=== PATIENT | male | born 1975 | race Caucasian/White ===

== ENCOUNTER 2017-07-29 18:43 | Emergency (ER) | payer BC ==
--- NOTE | 2017-07-29 19:40 | ERNOTE ---
Chest Pain/Cardiac HPI Date of Service: 07/29/17 Chief Complaint: Chest Pain Time Seen by Provider: 07/29/17 19:21 Source: patient, family, RN notes reviewed Exam Limitations: no limitations Immunizations: IMMUNIZATION HX Immunizations Up to Date Yes: unknown History of Influenza Vaccine No Hx Pneumococcal Vaccination No Allergies/Adverse Reactions: Allergies Flu Vaccine Allergy (Severe, Uncoded 07/29/17 19:01) Other Home Medications: HOME MEDICATIONS Ibuprofen [Motrin] 800 mg PO TID PRN 12/21/15 [Last Taken Unknown] Pain Score #1 Pain Score: 0 Narrative: Tray is a 41 year old male who presents to the ED for shortness of breath and palpitations that began earlier this afternoon. He was feeling fine prior to this. He reports walking a short distance and then becoming dyspneic and feeling like his heart was pounding like he had just been exercising heavily. The symptoms resolved with rest, but have continued to occur with minimal activity. He is currently asymptomatic at rest. He denies having any chest pain. He has no prior cardiac history. Date (Duration): 07/29/17 Time (Timing): 14:00 Prior Chest Pain/Cardiac Workup: Reports: no prior cardiac workup. Denies: prior chest pain Prior Treatment: Denies: recently seen Review of Systems - Review of Systems Constitutional: Absent: recent illness, fever, chills, fatigue, malaise EYE: Absent: eye pain, vision changes ENT: Absent: nose congestion, sore throat Respiratory: Present: shortness of breath - exertional. Absent: cough Cardiology: Present: palpitations. Absent: chest pain, syncope Gastrointestinal/Abdominal: Absent: nausea, vomiting, diarrhea, abdominal pain Genitourinary: Present: no symptoms reported Musculoskeletal: Absent: muscle pain, joint pain Skin: Absent: rash, lesions Neurological: Absent: headache, dizziness/light-headedness Endocrine: Absent: intolerance to heat, unexplained weight loss Hematologic/Lymphatic: Absent: easy bruising, easy bleeding Psych: Absent: anxiety, depressed - Patient's Past Medical History Patient History - Medical: No pertinent hx Patient History - Cardiac/Respiratory: Pneumonia Patient History - Cancer: No Hx of Cancer Patient History - Surgical Procedures: Appendectomy Patient History - Other: None - Family History Mother Family History - Medical: No pertinent hx Family History - Cardiac/Respiratory: CHF Family History - Cancer: No pertinent family hx Father Family History - Medical: No pertinent hx Family History - Cardiac/Respiratory: No pertinent hx Family History - Cancer: No pertinent family hx - Social History Living Situations: spouse Abuse History: No History of abuse Psych History: No pertinent hx Smoking Status: Former smoker Have you smoked in the past 12 months: No Do you dip or chew tobacco: No Patient requests Smoking Cessation Consult: No Initiate information on Smoking Cessation: No Alcohol Use: none Drug Use: none - Immunizations Immunizations Up to Date: Yes - unknown Hx Pneumococcal Vaccination: No History of Influenza Vaccine: No Physical Exam - Physical Exam General Appearance: Present: wd/wn, alert, no apparent distress Head Exam: Present: normal inspection Eye Exam: Normal inspection: bilateral Neck: Present: normal inspection, nontender, supple, full range of motion Respiratory: Present: no respiratory distress, normal breath sounds, no accessory muscle use, chest nontender, lungs clear Cardiovascular/Chest: Present: regular rate, rhythm, no murmur, normal peripheral pulses Gastrointestinal/Abdominal: Present: nontender, nondistended, soft Extremity Exam: Present: normal inspection, non-tender, normal range of motion, no edema Neurological Exam: Present: alert, oriented, normal mood/affect, no motor/ sensory deficits Skin Exam: Present: normal color, warm/dry ED Progress - Results and Orders Patient's Lab Results:: I have reviewed the patient's lab results. - Vital Signs Patient's Vital Signs:: I have reviewed the patient's vital signs. Vital Signs: Vital Signs 07/29/17 18:48 Temperature 36.5 C Pulse Rate 86 Respiratory 16 Rate Blood Pressure 164/88 O2 Sat by Pulse 93 Oximetry - EKG EKG: NSR EKG read: Reviewed by me - X-Ray X-Ray #1 X-Ray: chest Interpretation: Interp. by me X-ray Comments: No acute cardiopulmonary process noted - Progress/Reassessment Chief Complaint: Chest Pain Progress:: Pain free at discharge Progress Note-Subjective: 07/29/17 20:32 Patient ambulated to ay and back, appears dyspneic and reports having palpitations. Monitor shows SR at 85. SpO2 94% on room air. Denies pain. Additional labs ordered. Patient now remembers having a DVT in a lower extremity and having to take Coumadin approximately 15 years ago. He does not recall having any follow up done to evaluate any underlying coagulopathies after being taking off the medication. Departure Clinical Impression: Palpitations - Departure Disposition: Home Follow Up Needed Condition: Stable Instructions: Palpitations, [id number], Form - Excuse from Work, School, or Physical Activity Additional Instructions: Rest, drink plenty of fluids Return to ER if symptoms worsen Contact the clinic for follow up if you are still having symptoms tomorrow Referrals: Candelario Mosley MD [Primary Care Provider] -
[2017-07-29 19:45] LABS: Hematocrit 39.9 % (42.0-52.0); Hemoglobin 14.5 gm/dL (13.5-18.0); Mean Cell Volume 83.6 fl (78-100); Mean Corpuscular Hemoglobin 30.4 pg (27-31); Mean Corpuscular Hgb Conc 36.3 g/dl (32-36); Mean Platelet Volume 9.5 fl (6.0-9.5); Neutrophil # 4.5 K/mm3 (1.3-6.0); Neutrophil % 51.6 % (42-75.0); Platelet Count 241 K/mm3 (150-450); Red Blood Count 4.77 M/mm3 (4.7-6.0); White Blood Count 8.8 K/mm3 (4.0-10.5)
[2017-07-29 20:02] LABS: BUN/Creatinine Ratio 15.1 (9.0-21.6); Blood Urea Nitrogen 18 mg/dL (6-23); Glucose * 122 mg/dL (70-110); Sodium 136 mmol/L (132-142)
[2017-07-29 20:03] LABS: ALT 41 U/L (19-67); AST 18 U/L (0-48); Albumin * 3.9 gm/dl (3.4-5.0); Alkaline Phosphatase * 64 U/L (50-170); Anion Gap 6.5 mmol/L (6.8-13.8); Bilirubin, Total 0.2 mg/dL (0.0-1.1); Ca. Corrected For Albumin 8.4 mg/dL (8.4-10.2); Calcium * 8.6 mg/dL (7.9-10.9); Chloride 104 mmol/L (97-106); Potassium 3.5 mmol/L (3.4-4.6); Total Protein 7.7 gm/dL (6.2-8.2); Troponin I Less than 0.017 ng/ml (0.00-0.10)
[2017-07-29 20:44] LABS: BNP * 25 pg/mL (5-140); TSH * 1.954 uIU/mL (0.358-3.74)
[2017-07-29 22:31] VITALS: BP 155/96
== END 2017-07-29 21:19 | disposition home or self-care (01) ==
LOC: ER 18:43
DX: Z87.891 Personal history of nicotine dependence; R00.2 Palpitations

== ENCOUNTER 2017-08-02 19:26 | Observation (INO) | payer BC ==
[2017-08-02] MEDS ORDERED: ASPIRIN 81 MG TAB.CHEW ONE (19:36)
[2017-08-02] MEDS ORDERED: ASPIRIN 81 MG TAB.CHEW PO ONE (19:45)
[2017-08-02] MEDS: NITROGLYCERIN 0.4 MG/TAB BTL SL PRN ×2 (19:47→19:55)
[2017-08-02 20:02] LABS: Hematocrit 39.3 % (42.0-52.0); Hemoglobin 13.9 gm/dL (13.5-18.0); Mean Corpuscular Hemoglobin 29.7 pg (27-31); Mean Corpuscular Hgb Conc 35.4 g/dl (32-36); Mean Platelet Volume 9.6 fl (6.0-9.5); Neutrophil # 3.6 K/mm3 (1.3-6.0); Neutrophil % 45.8 % (42-75.0); Platelet Count 243 K/mm3 (150-450); Red Blood Count 4.68 M/mm3 (4.7-6.0); Red Cell Distribution Width 13.5 % (11.5-14.0)
[2017-08-02 20:21] LABS: ALT 44 U/L (19-67); AST 15 U/L (0-48); Albumin * 3.8 gm/dl (3.4-5.0); Alkaline Phosphatase * 56 U/L (50-170); Anion Gap 14.4 mmol/L (6.8-13.8); BUN/Creatinine Ratio 11.1 (9.0-21.6); Bilirubin, Total 0.2 mg/dL (0.0-1.1); Blood Urea Nitrogen 11 mg/dL (6-23); Ca. Corrected For Albumin 8.5 mg/dL (8.4-10.2); Calcium * 8.7 mg/dL (7.9-10.9); Carbon Dioxide 24.4 mmol/L (24-32.6); Chloride 105 mmol/L (97-106); Glucose * 101 mg/dL (70-110); Potassium 3.8 mmol/L (3.4-4.6); Sodium 140 mmol/L (132-142); Total Protein 7.5 gm/dL (6.2-8.2)
[2017-08-02 20:22] LABS: Troponin I Less than 0.017 ng/ml (0.00-0.10)
--- NOTE | 2017-08-02 20:57 | ERNOTE ---
Chest Pain/Cardiac HPI Date of Service: 08/02/17 Chief Complaint: Chest Pain Time Seen by Provider: 08/02/17 19:34 Source: patient, RN notes reviewed, past records Exam Limitations: no limitations Immunizations: IMMUNIZATION HX Immunizations Up to Date Yes: unknown History of Influenza Vaccine No Hx Pneumococcal Vaccination No Allergies/Adverse Reactions: Allergies Flu Vaccine Allergy (Severe, Uncoded 07/29/17 19:01) Other Home Medications: HOME MEDICATIONS Ibuprofen [Motrin] 800 mg PO TID PRN 12/21/15 [Last Taken Unknown] Narrative: Tray is a 41 year old male who presents to the ED by private vehicle for chest pain that began a short while ago while he was eating dinner. He was seen here by me 4 days ago for palpitations and shortness of breath. His work-up at that time was unremarkable. He was seen for follow up in the clinic and had an echo done today. He is scheduled for a stress test tomorrow morning. He has been off work and resting at home all week. He has continued to have palpitations and shortness of breath intermittently at home. Date (Duration): 08/02/17 Timing: constant Severity/Quality: moderate, aching Location: left chest Chest Pain Radiation: no radiation Activities at Onset: other - Eating Nitro Today/Relief: no nitro taken today Aspirin Treatment Today: 81 mg x 1 Prior Chest Pain/Cardiac Workup: Reports: echocardiogram - Today, no results available. Denies: no prior cardiac workup Prior Treatment: Reports: recently seen, treated by physician. Denies: recently hospitalized Review of Systems - Review of Systems Constitutional: Present: decreased activity level. Absent: fever, chills EYE: Present: no symptoms reported ENT: Absent: nose congestion, sore throat Respiratory: Present: shortness of breath. Absent: cough, orthopnea Cardiology: Present: chest pain, palpitations. Absent: syncope, edema Gastrointestinal/Abdominal: Absent: nausea, vomiting, abdominal pain Genitourinary: Present: no symptoms reported Musculoskeletal: Absent: muscle pain, joint pain Skin: Absent: rash, lesions, change in color Neurological: Absent: headache, dizziness/light-headedness, weakness, numbness, tingling Endocrine: Present: no symptoms reported Hematologic/Lymphatic: Absent: easy bruising, easy bleeding Psych: Absent: anxiety, depressed - Patient's Past Medical History Patient History - Medical: No pertinent hx Patient History - Cardiac/Respiratory: Asthma, Deep Vein Thrombosis, Pneumonia Patient History - Cancer: No Hx of Cancer Patient History - Surgical Procedures: Appendectomy Patient History - Other: None - Family History Mother Family History - Medical: No pertinent hx Family History - Cardiac/Respiratory: CHF Family History - Cancer: No pertinent family hx Father Family History - Medical: No pertinent hx Family History - Cardiac/Respiratory: No pertinent hx Family History - Cancer: No pertinent family hx - Social History Living Situations: home Abuse History: No History of abuse Psych History: No pertinent hx Smoking Status: Former smoker Have you smoked in the past 12 months: No Alcohol Use: none Drug Use: none - Immunizations Immunizations Up to Date: Yes - unknown Hx Pneumococcal Vaccination: No History of Influenza Vaccine: No Physical Exam - Physical Exam General Appearance: Present: wd/wn, alert, mild distress, anxious Head Exam: Present: normal inspection, no evidence of injury Eye Exam: Normal inspection: bilateral Neck: Present: normal inspection, nontender, supple Respiratory: Present: no respiratory distress, normal breath sounds, no accessory muscle use, chest nontender, lungs clear Cardiovascular/Chest: Present: regular rate, rhythm, no murmur, normal peripheral pulses Gastrointestinal/Abdominal: Present: nontender, nondistended, soft Extremity Exam: Present: normal inspection, no edema Neurological Exam: Present: alert, oriented, normal mood/affect, no motor/ sensory deficits Skin Exam: Present: normal color, warm/dry ED Progress - Results and Orders Patient's Lab Results:: I have reviewed the patient's lab results. - Vital Signs Patient's Vital Signs:: I have reviewed the patient's vital signs. Vital Signs: Vital Signs 08/02/17 08/02/17 19:33 19:47 Temperature 36.2 C L Pulse Rate 81 86 Respiratory 18 16 Rate Blood Pressure 152/98 154/102 O2 Sat by Pulse 96 94 Oximetry - EKG EKG: NSR, unchanged from - 07/29/17 EKG read: Reviewed by me - X-Ray X-Ray #1 X-Ray: chest Interpretation: Reviewed by me X-ray Comments: No acute cardiopulmonary findings - Progress/Reassessment Chief Complaint: Chest Pain Progress:: Improved Plan - Plan Plan: EKG without changes since 4 days ago, normal troponin, normal chest xray. Chest pain relieved with Ntg SL. Patient has nuclear med stress test at [address] Barlow contacted. Patient will be observation status on tele overnight d/t his ongoing symptoms. Departure Clinical Impression: Palpitations Chest pain Qualifiers: Chest pain type: unspecified Qualified Code(s): R07.9 - Chest pain, unspecified - Departure Disposition: [facility] Condition: Fair
[2017-08-02] MEDS ORDERED: NITROGLYCERIN 0.4 MG/TAB BTL SL PRN (20:58)
[2017-08-02] MEDS ORDERED: SIMVASTATIN 40 MG TABLET PO SCH (21:00)
[2017-08-03] MEDS ORDERED: Regadenoson 0.08 MG/ML SYRG IV ONE (08:15)
[2017-08-03] MEDS ORDERED: Regadenoson 0.1 MG UNIT IV ONE (08:15)
[2017-08-03 10:33] VITALS: BP 144/92
--- NOTE | 2017-08-03 11:30 | HP ---
Chief Complaint - Chief Complaint Date of Service: 08/03/17 Time of Service: 12:45 Chief Complaint: chest pain, palpitations History of Present Illness: The patient states that his chest pain and palpitations started on Sunday, 07/29. Prior to this day, he denies ever experiencing chest pain or palpitations. He states the chest pain and palpitations only occur when he is up moving around and being active. Does not occur at rest. The episodes happen multiple times per day and usually last a few seconds to minutes and very rarely lasts over 5 minutes. He has not found anything that relieves the symptoms other than just sitting and waiting them out. - Patient's Past Medical History Patient History - Medical: No pertinent hx Patient History - Cardiac/Respiratory: Asthma, Deep Vein Thrombosis, Pneumonia Patient History - Cancer: No Hx of Cancer Patient History - Surgical Procedures: Appendectomy Patient History - Other: None - Family History Mother Family History - Medical: No pertinent hx Family History - Cardiac/Respiratory: CHF Family History - Cancer: No pertinent family hx Father Family History - Medical: No pertinent hx Family History - Cardiac/Respiratory: No pertinent hx Family History - Cancer: No pertinent family hx - Social History Living Situations: home Abuse History: No History of abuse Psych History: No pertinent hx Smoking Status: Former smoker Have you smoked in the past 12 months: No Do you dip or chew tobacco: No Alcohol Use: none Drug Use: none - Immunizations Immunizations Up to Date: Yes - unknown Hx Pneumococcal Vaccination: No History of Influenza Vaccine: No Review Of Systems (GEN) - Review of Systems Generalized/Overall Review: Present: Fatigue. Absent: Chills, Fever EENTM: Present: No Symptoms Reported Respiratory: Absent: Cough Cardiac: Present: Chest Pain, Palpitations Abdominal: Present: No Symptoms Reported Genitourinary: Present: No Symptoms Reported Musculoskeletal: Present: No Symptoms Reported Neurological: Present: No Symptoms Reported Skin: Present: No Symptoms Reported Endocrine: Present: No Symptoms Reported Misc: All systems neg except as marked Immunizations: IMMUNIZATION HX Immunizations Up to Date Yes: unknown History of Influenza Vaccine No Hx Pneumococcal Vaccination No Allergies/Adverse Reactions: Allergies Allergy/AdvReac Type Severity Reaction Status Date / Time Flu Vaccine Allergy Severe Other Uncoded 07/29/17 19:01 Exam - Exam Vital Signs: Vital Signs - Last Taken Temp 36.4 C L 08/03/17 09:26 Pulse 79 08/03/17 10:31 Resp 18 08/03/17 10:31 BP 144/92 08/03/17 10:32 Pulse Ox 98 08/03/17 10:31 Constitutional: Present: Alert, Oriented x3, Cooperative, Well developed, No distress, Obese ENT Exam: Present: hearing grossly normal, moist mucous membranes Eye Exam: bilateral eye: normal inspection Respiratory: Present: lungs clear, normal breath sounds, no respiratory distress , no accessory muscle use Cardiovascular/Chest: Present: regular rate, rhythm, no edema, no murmur Abdomen: Present: soft, nontender, nondistended, obese Extremity: Present: normal inspection, no pedal edema Skin Exam: Present: normal color, warm/dry Neurologic: Present: alert, normal mood/affect, oriented x 3 Appearance: Present: appropriate appearance, appropriate insight, neat, no memory impairment Eye contact: Present: cooperative, good eye contact, normal speech Thoughts: Present: normal thought pattern, no apparent hallucination Diagnostic Studies: Laboratory Results WBC 8.0 K/mm3 (4.0-10.5) 08/02/17 20:01 RBC 4.68 M/mm3 (4.7-6.0) L 08/02/17 20:01 Hgb 13.9 gm/dL (13.5-18.0) 08/02/17 20:01 Hct 39.3 % (42.0-52.0) L 08/02/17 20:01 MCV 84.0 fl (78-100) 08/02/17 20:01 MCH 29.7 pg (27-31) 08/02/17 20:01 MCHC 35.4 g/dl (32-36) 08/02/17 20:01 RDW 13.5 % (11.5-14.0) 08/02/17 20:01 Plt Count 243 K/mm3 (150-450) 08/02/17 20:01 MPV 9.6 fl (6.0-9.5) H 08/02/17 20:01 Immature Gran % (Auto) 0.60 % (0.001-0.429) H 08/02/17 20:01 Immature Gran # (Auto) 0.05 K/mm3 (0.000-0.0310) H 08/02/17 20:01 Neutrophils % 45.8 % (42-75.0) 08/02/17 20:01 Lymphocytes % 42.1 % (20-51) 08/02/17 20:01 Monocytes % 6.0 % (0.0-9) 08/02/17 20:01 Eosinophils % 4.0 % (0.0-3.0) H 08/02/17 20:01 Basophils % 1.5 % (0.0-1.0) H 08/02/17 20:01 Nucleated RBC % 0.0 k/mm3 (0-1) 08/02/17 20:01 Neutrophils # 3.6 K/mm3 (1.3-6.0) 08/02/17 20:01 Lymphocytes # 3.4 k/mm3 (1.5-3.5) 08/02/17 20:01 Monocytes # 0.5 k/mm3 (0.0-1.0) 08/02/17 20:01 Eosinophils # 0.3 k/mm3 (0.0-0.7) 08/02/17 20:01 Absolute Basophils 0.1 k/mm3 (0.0-0.1) 08/02/17 20:01 Sodium 140 mmol/L (132-142) 08/02/17 20:01 Plasma Sodium 140 mmol/L (130-142) 08/02/17 20:01 Potassium 3.8 mmol/L (3.4-4.6) 08/02/17 20:01 Chloride 105 mmol/L (97-106) 08/02/17 20:01 Carbon Dioxide 24.4 mmol/L (24-32.6) 08/02/17 20:01 Anion Gap 14.4 mmol/L (6.8-13.8) H 08/02/17 20:01 BUN 11 mg/dL (6-23) 08/02/17 20:01 Creatinine 0.99 mg/dL (0.4-1.4) 08/02/17 20:01 Est GFR (Non-Af Amer) 88 mL/min (60-130) D 08/02/17 20:01 BUN/Creatinine Ratio 11.1 (9.0-21.6) 08/02/17 20:01 Random Glucose 101 mg/dL (70-110) 08/02/17 20:01 Calcium 8.7 mg/dL (7.9-10.9) 08/02/17 20:01 Calcium Adj for Albumin 8.5 mg/dL (8.4-10.2) 08/02/17 20:01 Total Bilirubin 0.2 mg/dL (0.0-1.1) 08/02/17 20:01 AST 15 U/L (0-48) 08/02/17 20:01 ALT 44 U/L (19-67) 08/02/17 20:01 Alkaline Phosphatase 56 U/L (50-170) 08/02/17 20:01 Troponin I Less than 0.017 ng/ml (0.00-0.10) 08/03/17 02:58 Total Protein 7.5 gm/dL (6.2-8.2) 08/02/17 20:01 Albumin 3.8 gm/dl (3.4-5.0) 08/02/17 20:01 Assessment/Plan - Narrative Narrative: Admit to Med-Surg, observation status. Monitor on telemetry overnight. Trend cardiac enzymes. Plan for stress test in AM. - Assessment/Plan (1) Chest pain Problem: Acute Qualifiers: Chest pain type: unspecified Qualified Code(s): R07.9 - Chest pain, unspecified (2) Palpitations Problem: Acute
--- NOTE | 2017-08-03 11:33 | DS ---
(1) Chest pain Problem: Acute Qualifiers: Chest pain type: unspecified Qualified Code(s): R07.9 - Chest pain, unspecified (2) Palpitations Problem: Acute Description of Stay: ADMISSION DATE: 08/02/2017 DISCHARGE DATE: 08/03/2017 ADMISSION HPI: The patient states that his chest pain and palpitations started on Sunday, 07/29. Prior to this day, he denies ever experiencing chest pain or palpitations. He states the chest pain and palpitations only occur when he is up moving around and being active. Does not occur at rest. The episodes happen multiple times per day and usually last a few seconds to minutes and very rarely lasts over 5 minutes. He has not found anything that relieves the symptoms other than just sitting and waiting them out. HOSPITAL COURSE: The patient was admitted to the hospital, observation status, and he was monitored on telemetry overnight which was unremarkable. His cardiac enzymes were trended which were also unremarkable. Overall his blood work and his hospital stay was unremarkable. His nuclear medicine cardiac stress test showed no evidence of ischemia or infarct. The patient was discharged home in stable condition and scheduled for a 24-hour Holter monitor on 08/06/2017. He was instructed to follow-up with his primary care physician within one week to go over the results of the Holter monitor and to discuss possible further workup for the patients symptoms. FOLLOW-UP APPOINTMENTS: -Your Holter monitor is set up for 08/06 at 9am. Please check in at outpatient registration. You cannot shower while the Holter is in place. -Follow-up with PCP within 1 week NEW OR CHANGED MEDICATIONS: None DISCONTINUED MEDICATIONS: None RADIOLOGY REPORTS: PA and lateral chest x-ray on 08/02/2017: No acute cardiopulmonary abnormality identified. Nuclear medicine pharmacologic cardiac stress test on 08/03/2017: No evidence for ischemia or infarct. Procedures Performed: none Results and Findings: Laboratory Tests 08/02/17 08/03/17 20:01 02:58 Troponin I Less than 0.017 Less than 0.017 Discharge Disposition: Home self care Disposition: Home self-care Condition: Stable Discharge Activity: Activity as tolerated Discharge Diet: General/regular food Referrals: Candelario Mosley MD [Primary Care Provider] - Problem Oriented Discharge Instructions to Patient/Family: Chest Pain Observation Additional Patient Instructions (free text): -Your Holter monitor is set up for 08/06 at 9am. Please check in at outpatient registration. You cannot shower while the Holter is in place. -Follow-up with PCP within 1 week will see Leandra in the clinic on 08-10-17 @ 9: 00am. Amb Orders for Discharge: Holter Monitor Time Frame: 08/06/17, Location: Determined By Patient
== END 2017-08-03 12:50 | disposition home or self-care (01) ==
LOC: ER 19:26 → MS 20:45
PROVIDERS: ADMIT Internal Medicine; ATTEND Internal Medicine
DX: R07.9 Chest pain, unspecified (principal); R00.2 Palpitations; Z68.32 Body mass index [BMI] 32.0-32.9, adult
CPT/HCPCS: 36415; 71046; 78452; 80053; 84484; 85025; 93005; 93017; 99285; A9502; G0378; J2785